=== PATIENT | male | born 2000 | race Caucasian/White ===

== ENCOUNTER 2018-05-26 16:22 | Emergency (ER) | payer BC ==
--- NOTE | 2018-05-26 17:29 | EDPHY ---
General - History Smoking Status: Never smoked Time Seen by Provider: 05/26/18 17:06 Narrative: CLINICAL IMPRESSION: Left hand laceration ASSESSMENT/PLAN: 18-year-old intoxicated male presents to the emergency department with a left hand laceration, lateral to the left 5th MCP joint sustained after he fell through a skylight at the [employer]. Initial x-rays show probable small foreign body within the laceration. Neurovascular exam intact. Full range of motion of all fingers and wrist. Unfortunately, despite multiple attempts at removal of foreign body by myself and Dr. Aguirre including the need for extension of the laceration and wound probing, we were unable to identify and remove the foreign body. Wound was thoroughly irrigated. Tetanus up-to-date. Wound was repaired and patient will be discharged with follow up at outpatient hand specialist. Signs and symptoms of infection reviewed. Warning signs return to ED sooner outlined and discharge. DIFFERENTIAL DIAGNOSIS: includes but not limited to laceration of tendon or vascular structure, underlying fracture, laceration with retained FB ED PROCEDURES: Laceration Repair Verbal consent obtained by patient. Risks discussed, including but not limited to infection, pain, retained foreign body, need for additional repair, poor cosmetic result, tendon damage, nerve damage, poor wound healing, vascular damage. Alternatives to repair discussed. Brewster protocol used to establish correct patient, procedure, equipment, ict support and test engineers, and site. Anesthesia obtained by local infiltration. Anesthetized with 0.5% bupivacaine without epinephrine. Laceration location left hand, length 2 cm, depth 4 mm, Repair type simple. Patient was prepped and draped in usual sterile fashion. Hemostasis achieved with direct pressure. Wound explored through full range of motion and entire depth of wound probed and visualized with gloved finger. No suspicion for nerve damage, tendon damage, underlying fracture, vascular damage, foreign body, or contamination. Area was cleansed with Shur-Clens and irrigated with sterile saline as per protocol. No foreign body or material removed. Repair method 5 0 Prolene simple interrupted sutures . Seven sutures placed. Well aligned, closely approximated. wound was dressed with bacitracin and dressing. Patient tolerated well with no immediate complications. Wound care: Clean and dry x 24 hours, gently clean with soap and water, cover with topical antibiotic ointment/bandage. Suture/Staple removal: 7-10 Days Please see x-ray results below CHIEF COMPLAINT: Laceration HPI: 18-year-old male presents to the emergency department by private vehicle after he was 1 of several people who fell through a skylight at a [employer]. Patient fell approximately 7 ft landing on 2 other people before hitting the ground on his back. He denies hitting his head or having loss of consciousness. He has no headache, dizziness or vertigo. He is heavily intoxicated. He has no complaints of neck or back pain. His only complaint is a left hand laceration. He and his significant other went to [facility] prior to arrival trying to patch the wound which was persistently bleeding and they arrived in the ED for consultation. Tetanus is up-to-date. No other injuries. No loss of sensation to hand or fingers. PAST MEDICAL HISTORY: None reported Pertinent Past Surgical History: None reported Social History: Otherwise healthy, [employer] student, tetanus up- to-date REVIEW OF SYSTEMS: All other systems negative Constitutional: No fever, no chills Musculoskeletal: No deformity, no joint pain Skin: Laceration to left hand Neurological: No sensory loss or weakness, 2 point discrimination intact. PHYSICAL EXAM: General Appearance: Alert, oriented, appropriate for age, cooperative, NAD, well hydrated, intoxicated, VSS, no hypoxia. Neurological: Alert and oriented x 3 Skin: 1.5 cm laceration to left 5th MCP. Small superficial laceration to right medial ankle. Musculoskeletal: No midline neck or back pain. No palpable scalp hematoma or laceration. Full range of motion of bilateral upper and lower extremities without discomfort. Intact distal neurovascular exam. Distal 2 point discrimination intact to the left 5th finger. MEDICAL DECISION MAKING: Secondary supervising physician at time of evaluation was Dr. Aguirre. Dr. Aguirre also saw and examined this patient Diagnosis: Left hand laceration with foreign body. New, requires workup Summary: See assessment and plan for summary of ED visit Independent visualization of images, tracing, or specimens yes. Patient Progress stable for discharge. (Jaime Salazar) Medical Decision Making: I did spend a significant amount of time personally evaluating this patient looking for the last foreign body. I even extended his wound used x-rays and markers but was ultimately unable to locate the piece of glass. It was irrigated several times. This all done under sterile technique. We ultimately decided to close the wound and have him follow up with Hand surgery. No obvious intra-articular or ligamentous injury. 1:00 p.m. May 28. I spoke with the patient by phone. He states the wound is healing well. I re-emphasized following up with Hand surgery. I voiced my concern for possible infection. I called in a prescription for Keflex to 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 (Hollis Aguirre) - Objective Vital Signs: Initial Vital Signs Temperature (C) 36.5 C 05/26/18 16:32 Heart Rate 107 H 05/26/18 16:32 Respiratory Rate 18 05/26/18 16:32 Blood Pressure 130/86 H 05/26/18 16:32 O2 Sat (%) 95 05/26/18 16:32 O2 Delivery Mode Room Air Allergies/Adverse Reactions: No Known Allergies Allergy (Unverified 05/26/18 16:32) Home Medications: Medication Instructions Recorded NK [No Known Home Meds] 05/26/18 Departure - Departure Disposition: Home, Routine, Self-Care Clinical Impression: Hand laceration Condition: Good Instructions: Laceration (ED) Additional Instructions: DISCHARGE INSTRUCTIONS FROM YOUR DOCTOR Thank you for visiting our emergency department today. You were treated by a physician land surveyor assistant today and your case was reviewed with our ED Attending physician. Please keep in mind that discharge from the emergency department does not mean that there is nothing wrong - it simply means that we have not identified an emergency condition that requires further evaluation or treatment in the hospital. You should always plan to follow up with primary care for re- evaluation of your condition in the next 2-3 days. If you have been referred to a specialist, please call as soon as possible (today or tomorrow) to schedule your follow up appointment at the appropriate time. [ PLEASE HAVE SUTURES/MEHRDAD REMOVED IN 10 DAYS. YOU CAN RETURN TO THE EMERGENCY DEPARTMENT OR YOUR PRIMARY CARE FOR SUTURE/STAPLE REMOVAL. AVOID SUBMERGING SUTURES/MEHRDAD UNDERWATER FOR PROLONGED PERIOD OF TIME UNTIL REMOVED. KEEP WOUND CLEAN AND DRY, COVER WITH ANTIBIOTIC OINTMENT AND BAND-AID. RETURN TO EMERGENCY DEPARTMENT FOR REDNESS, SWELLING, DISCHARGE, WARMTH TO THE SKIN, OR ANY OTHER CONCERNS FOR INFECTION. XRAYS DID SHOW A SMALL GLASS FOREIGN BODY THAT WE WERE UNABLE TO REMOVE. IF THIS CAUSES YOU PAIN OR THE WOUND APPEARS TO BE INFECTED, RETURN TO ER AND CONSIDER ORTHO HAND CONSULTATION. REFERRALS WERE GIVEN. ] People present with illnesses and injuries in different ways, and it is always possible that we have missed something. You may always return for re-evaluation if symptoms worsen or if they are not improving or if you develop new/different symptoms. Again, thank you for choosing our emergency department. We hope that you feel better. Referrals: Scout Adams MD [Medical Doctor] - 3-4 days, if not improved
[2018-05-26 20:59] VITALS: BP 133/72
--- NOTE | 2018-05-27 10:51 | EDPHY ---
ZACK Addendum - Addendum .: 10:45am: I call patient this morning to see how his hand was doing and also to obtain [place] [facility] [place]. I asked him to call ED back today so we can get him an abx. phone number provided.
== END 2018-05-26 20:58 | disposition home or self-care (01) ==
PROC: 0HQGXZZ Repair Left Hand Skin, External Approach (ICD-10-PCS; principal; 2018-05-26)
DX: S61.412A Laceration without foreign body of left hand, initial encounter (principal); W13.2XXA Fall from, out of or through roof, initial encounter; Y92.9 Unspecified place or not applicable; Y93.9 Activity, unspecified; Y99.9 Unspecified external cause status